=== PATIENT | female | born 1950 | race African-American/Black ===

== ENCOUNTER 2021-02-21 05:32 | Emergency (ER) | payer OTHER ==
[~2021-02-21] VITALS: Ht 154.9 cm; Wt 68.5 kg
--- NOTE | ~2021-02-21 | EMS ---
[place] [id number] EMS Patient Care Report Name: ALIN HENSON Room #: DEP NATE Pozo#: [id number] Admission: 02/21/21 Attend Phys: Discharge: 02/21/21 Date of : 50 Report #: [id number] THIS REPORT FOR: //name// Report Transmitted: 02/21/2021 23:00 EMS Care Summary [place], [place]/[facility] Incident [id number] @ 02/21/2021 04:49 Incident Location [address] [place] [address] Patient ALIN HENSON Female, 70 Years 1950 Patient Address [address] [place] [address] Patient History Diabetes,Hypertension (HTN), Patient Medications Metformin, Chief Complaint SEIZURE Disposition Transported No Lights/[place] Dis[place] Reason Convulsions/Seizure Transported To [facility] Narrative PUMPER 30/MEDIC 30 WERE DISPATCHED TO THE ADDRESS LISTED PREVIOUSLY IN THIS REPORT ON A PATIENT WITH SEIZURES. UPON ARRIVAL, EMS OBSERVED ONE FEMALE PATIENT SITTING UPRIGHT ON A BED. PATIENT WAS TRACKING EMS UPON APPROACH. PATIENT'S GRANDSON INFORMED EMS THAT HE FOUND THE PATIENT ON THE FLOOR, DISPLAYING SEIZURE LIKE ACTIVITY PRIOR TO EMS ARRIVAL. PATIENT STATED THAT HE PUT THE PATIENT BACK INTO THE BED AND THEN THE PAT[place] [address] EMS Patient Care Report Name: ALIN HENSON Room #: DEP ER Shanice#: [id number] Admission: 02/21/21 Attend Phys: Discharge: 02/21/21 Date of : 50 Report #: [id number] LEVEL OF CONSCIOUSNESS PRIOR TO EMS ARRIVAL. EMS OBSERVED PATIENT'S BLOOD GLUCOSE LEVEL TO BE BELOW NORMAL LIMITS. PATIENT WAS THEN GIVEN A SANDWICH BY HER GRANDSON THAT SHE BEGAN TO CONSUME. PATIENT INFORMED EMS THAT TSHE DID NOT WANT FURTHER EMS TREATMENT OR TRANSPORTATION TO THE HOSPITAL. EMS INFORMED PATIENT THAT DUE TO THE NEW ONSET OF SEIZURE LIKE ACTIVITY, IT WAS IN THE BEST INTEREST OF THE PATIENT TO RECIEVED EMS TREATMENT AND TRANSPORT TO THE CLOSEST APPROPRIATE FACILITY. PATIENT ACKNOWLEDGED. PATIENT WAS THEN PLACED ON THE COT AND MOVED TO THE AMBULANCE WITHOUT INCIDENT. ONCE IN THE AMBULANCE, VITAL SIGH MONITORING CONTINUED AND IV ACCESS WAS ESTABLISHED. ONCE ENROUTE TO THE RECEIVING FACILITY ([facility]), VITAL SIGN MONITORING CONTINUED AND RADIO REPORT WAS GIVEN. UPON ARRIVAL AT THE RECEIVING FACILITY, PATIENT WAS MOVED FROM THE AMBULANCE TO THE HOSPITAL COT WITHOUT INCIDENT. VERBAL REPORT WAS GIVEN TO THE PATIENT'S NURSE AND PATIENT CARE WAS TRANSFERRED. Initial Vitals @05:20P: 76,R: 16,BP: 160/86,Pain: 0/10,GCS: 15,Glucose: 70,SpO2: 100,Revised Trauma: 12, @05:10P: 83,R: 16,BP: 171/92,GCS: 15,CO: 6,SpO2: 98,Revised Trauma: 12, @04:57P: 89,R: 16,BP: 160/89,Pain: 0/10,GCS: 15,Glucose: 40,SpO2: 97,Revised Trauma: 12, Assessments @04:55MENTAL:Person Oriented,Time Oriented,Place Oriented,Event Oriented,SKIN:HEENT:LUNG SOUNDS:ABDOMEN:PELVIS//GI:EXTREMITIES:PULSE:Radial: 2+ Normal,NEURO:Seizures, Impression Diabetic Hypoglycemia Procedures @05:13Saline Lock 10cc (18 ga) Site: Antecubital-LeftResponse: UnchangedSucceeded@04:55ALS AssessmentResponse: UnchangedSucceeded Timeline 04:47,Call Received 04:47,Dispatch Notified 04:49,Dispatched 04:51,En Route 04:54,On Scene 04:55,At Patient 04:55,ALS Assessment,Response: UnchangedSucceeded, 04:57,BP: 160/89 M,PULSE: 89,RR: 16 R,SPO2: 97 Ox,ETCO2: ,B,PAIN: 0,GCS: 15, 05:10,BP: 171/92 M,PULSE: 83,RR: 16 R,SPO2: 98 Ox,ETCO2: ,BG: ,PAIN: ,GCS: 15, 05:13,Saline Lock 10cc 18 ga Site: Antecubital-Left,Response: UnchangedSucceeded, [facility] [address] [place] [address] EMS Patient Care Report Name: ALIN HENSON Room #: DEP Nohelia#: [id number] Admission: 02/21/21 Attend Phys: Discharge: 02/21/21 Date of : 50 Report #: [id number] 05:17,Depart Scene 05:20,BP: 160/86 M,PULSE: 76,RR: 16 R,SPO2: 100 Ox,ETCO2: ,B,PAIN: 0,GCS: 15, 05:34,At Destination 05:53,Call Closed Disclaimer v1.1 Copyright 2020 [employer], [employer] This EMS Care Summary contains data elements from the applicable legal record (which may be displayed differently). It is designed to provide pertinent information for the following purposes: continuity of care, clinical quality, and state data reporting. The complete legal record is available to ED staff and administrators of the receiving hospital in [employer] Patient Tracker. All data is provided "as is."
[2021-02-21 05:48] LABS: ABSOLUTE NEUTROPHILS 5.1 thou/uL (1.4-8.2); BASOPHILS 0.5 % (0.0-2.0); EOSINOPHILS 2.5 % (0.0-3.0); HEMATOCRIT 33.4 % (37.0-47.0); HEMOGLOBIN 10.9 gm/dL (12.0-15.0); LYMPHOCYTES 30.9 % (24.0-44.0); MCH 27.5 pg (26.0-34.0); MCHC 32.6 g/dL (28.0-37.0); MCV 84.3 fL (80.0-100.0); MONOCYTES 9.4 % (1.0-8.0); PLATELET COUNT 299 thou/uL (150-400); POLYS 56.7 % (36.0-66.0); RBC 3.96 mil/uL (4.20-5.00); RDW 17.6 % (10.5-14.5); WBC 8.9 thou/uL (4.0-11.0)
[2021-02-21 05:55] LABS: ANION GAP 12 mmol/L (7-16); BUN 21 mg/dL (7-18); CALCIUM 9.2 mg/dL (8.5-10.1); CHLORIDE 104 mmol/L (98-107); CO2 25 mmol/L (21-32); GLUCOSE 66 mg/dL (74-106); POTASSIUM 3.5 mmol/L (3.5-5.1); SODIUM 141 mmol/L (136-145)
[2021-02-21 06:05] LABS: ALBUMIN 3.1 g/dL (3.4-5.0); DIRECT BILIRUBIN < 0.1 mg/dL (<0.1-0.2); SGOT 13 U/L (15-37); SGPT 17 U/L (14-59); TOTAL BILIRUBIN 0.4 mg/dL (0.2-1.0); TOTAL PROTEIN 7.3 g/dL (6.4-8.2); TROPONIN-I <0.06 ng/mL (<0.06)
[2021-02-21 06:09] LABS: URINE BILIRUBIN NEGATIVE (Negative); URINE BLOOD TRACE (Negative); URINE CLARITY CLEAR; URINE COLOR YELLOW; URINE GLUCOSE-RANDOM* 2+ (Negative); URINE KETONES NEGATIVE (Negative); URINE LEUKOCYTES-REFLEX NEGATIVE (Negative); URINE NITRITE-REFLEX NEGATIVE (Negative); URINE PROTEIN (DIPSTICK) 3+ (Negative); URINE SPECIFIC GRAVITY 1.025 (1.005-1.035); URINE UROBILINOGEN 0.2 E.U./dl (0.2-1.0)
[2021-02-21 06:24] LABS: CASTS None Seen /LPF (None Seen); SQUAMOUS 4-10 Moderate /LPF (0-3)
[2021-02-21 06:27] LABS: BACTERIA-REFLEX 1-9 Few /HPF (None Seen); CRYSTALS None Seen /LPF (None Seen); URINE RBC 1-2 Rare /HPF (NONE SEEN); URINE WBC-REFLEX 6-15 Few /HPF (0-5)
[2021-02-21 07:19] VITALS: BP 142/64
--- NOTE | 2021-02-21 08:51 | EKG ---
[place] [address] [facility] [place] [address] ELECTROCARDIOGRAM REPORT Name: ALIN HENSON Room #: REG NATE Pozo#: [id number] Admission: 02/21/21 Attend Phys: Discharge: Date of : 50 Report #: [id number] [facility] ED Test Date: 2021-02-21 Test Time: 05:46:49 Pat Name: ALIN HENSON Department: Room: Gender: F [employer]ocl[employer] Operator: SANDY : 1950 Requested By: Rigoberto Soto Order Number: [id number] MD: Sebastian Arnold Measurements Intervals [place] Rate: 67 P: 34 FL: 142 QRS: -31 QRSD: 93 T: -11 QT: 425 QTc: 449 Interpretive Statements Sinus rhythm Left ventricular hypertrophy Nonspecific T wave abnormality Anterior ST elevation, probably due to LVH No previous ECG available for comparison Electronically Signed On 02-21-2021 8:51:20 CDT by Sebastian Arnold [email or web address] <ELECTRONICALLY SIGNED> By: Sebastian Arnold MD, [facility] 02/21/21 0851 [id number] [id number] Sebastian Arnold MD, FACC /EPI
== END 2021-02-21 07:17 | disposition home or self-care (01) ==
LOC: ER 05:32
PROVIDERS: Emergency Medicine
DX: R56.9 Unspecified convulsions (principal); E11.649 Type 2 diabetes mellitus with hypoglycemia without coma; I10 Essential (primary) hypertension